=== PATIENT | female | born 1995 | race Hispanic/Latino ===

== ENCOUNTER 2017-07-25 14:20 | Emergency (ER) | payer SELFPAY ==
[2017-07-25 15:34] LABS: #Basophils 0.1 thou/uL (0.0-0.2); #Eosinphils 0.1 thou/uL (0.0-0.7); #Lymphocytes 2.2 thou/uL (1.20-3.40); #Monocytes 0.6 thou/uL (0.11-0.59); #Neutrophils 4.6 thou/uL (1.40-6.50); %Eosinophils 1.9 % (0.0-10.0); %Lymphocytes 29.1 % (21.0-51.0); %Monocytes 7.2 % (0.0-10.0); %Neutrophils 60.8 % (42.0-75.0); Hemoglobin 13.7 g/dL (12.0-16.0); Mean Corpuscular HGB CONC 32.3 g/dL (32.0-36.0); Mean Corpuscular Hemoglobin 29.1 pg (27.0-31.0); Mean Corpuscular Volume 90.3 fl (81.0-99.0); Mean Platelet Volume 6.5 fL (7.4-10.4); Platelet Count 316 thou/uL (130-400); RBC Distribution Width 12.9 % (11.5-14.5); Red Blood Cell (RBC) Count 4.71 mill/uL (4.20-5.40); White Blood Cell (WBC) Count 7.6 thou/uL (4.8-10.8)
[2017-07-25 15:53] LABS: ALT (SGPT) 25 U/L (8-55); AST (SGOT) 17 U/L (5-34); Albumin 4.3 g/dL (3.5-5.0); Alkaline Phosphatase 105 U/L (40-150); Anion Gap 13 mmol/L (10-20); BUN (Urea Nitrogen) 12 mg/dL (7.0-18.7); Bilirubin, Total 0.5 mg/dL (0.2-1.2); Calc. Creatinine Clearance 0 mL/min (70-130); Calcium 9.8 mg/dL (7.8-10.44); Carbon Dioxide 23 mmol/L (22-29); Chloride 104 mmol/L (98-107); Estimated GFR-MDRD Greater than 90; Globulin 3.4 g/dL (2.4-3.5); Glucose 93 mg/dL (70-105); Potassium 4.3 mmol/L (3.5-5.1); Protein, Total 7.7 g/dL (6.0-8.3); Sodium 136 mmol/L (136-145)
== END 2017-07-25 17:23 | disposition home or self-care (01) ==
LOC: ERS 14:20
DX: N93.9 Abnormal uterine and vaginal bleeding, unspecified (principal); F90.9 Attention-deficit hyperactivity disorder, unspecified type; F31.9 Bipolar disorder, unspecified; F17.290 Nicotine dependence, other tobacco product, uncomplicated
CPT/HCPCS: 36415; 80053; 84702; 85025; 99284

== ENCOUNTER 2017-09-02 20:42 | Emergency (ER) | payer SELFPAY ==
--- NOTE | 2017-09-02 21:40 | RAD ---
PA AND LATERAL CHEST RADIOGRAPH: Date: 09-02-17 History: Cough, congestion for one week. Comparison: 04-06-16 FINDINGS: Cardiac silhouette and pulmonary vasculature are within normal limits. The lungs remain clear. There has been no interval change from prior study. IMPRESSION: No acute cardiopulmonary process. POS: [facility]
== END 2017-09-02 22:34 | disposition home or self-care (01) ==
LOC: ERS 20:42
DX: B34.9 Viral infection, unspecified (principal); F31.9 Bipolar disorder, unspecified; F90.9 Attention-deficit hyperactivity disorder, unspecified type; F17.290 Nicotine dependence, other tobacco product, uncomplicated
CPT/HCPCS: 71046

== ENCOUNTER 2017-11-04 22:49 | Emergency (ER) | payer SELFPAY | END 2017-11-04 23:20 | disposition left against medical advice (07) | LOC: ERS 22:49 | DX: Z53.21 Procedure and treatment not carried out due to patient leaving prior to being seen by health care provider (principal) ==

== ENCOUNTER 2018-03-20 18:51 | Day surgery (SDC) | payer OTHER ==
[2018-03-20 19:23] VITALS: BP 103/53; TEMP 98.4; BMI 31.4
--- NOTE | 2018-03-20 19:38 | PDOC.LDHP ---
Labor and Delivery H&P Chief complaint: other (s/p fall at approx 1830 in kitchen. Patient of Dr aquino at [facility]) HPI: 22 yo at 23 weeks and 3 days s/p fall from standing (s/p slipping on floor) , approx 30 minutes ago. No LOF, No VB, feels baby movement. Sees Dr aquino. Review of Systems: HX anxiety and depression; past frug use (states none now), HX migraines, HX "seizures". Current gestational age (weeks): 23 (3 days) Due date: 07/14/18 Dating criteria: last menstrual period Grav: 3 Para: 2 Current complications: other (HX Migraines, depression) Current medications: pre- vitamins Previous surgical history: other (Tonsils) Allergies/Adverse Reactions: Allergies Allergy/AdvReac Type Severity Reaction Status Date / Time quetiapine fumarate AdvReac Mild Verified 02/08/16 21:50 [From Seroquel] Social history: other (past "histoty" denies current) - Physical Exam Vital signs reviewed and normal: yes (105/53, pulse76, RR 16) General: NAD Heart: RRR Lungs: CTAB Abdomen: other (soft, nt, no palp contractions) Extremeties: no edema FHT: category 1 (reactive for dates, no decels) [place] contractions every: none - Assessment s/p fall at 23 weeks and 3 days, past HX drug use, and past smoker. - Plan Plan: observation in L&D (Perr ACOG, we will obs for max of 4 hours. Check RH type. UTox for past HX drug use. Follow clinically. No VB currently. Patient seen by me at bedside.)
[2018-03-20 20:30] LABS: Amphetamine Not Detected (NotDetected); Barbiturates Screen Not Detected (NotDetected); Benzodiazepine Screen Not Detected (NotDetected); Cocaine Metabolite Screen Not Detected (NotDetected); Medtox Control Line Valid? VALID (VALID); Medtox Reader # READER 1; Methadone Not Detected (NotDetected); Methamphetamine Not Detected (NotDetected); Opiate Screen Not Detected (NotDetected); Oxycodone Screen Not Detected (NotDetected); Phencyclidine (PCP) Not Detected (NotDetected); THC/Cannabinoid Screen Detected (NotDetected); Tricyclic Screen Not Detected (NotDetected)
--- NOTE | 2018-03-20 20:42 | PDOC.EVN ---
Event Note - Event Note Event Note: Lab Check: UTox pos for cannabinoids. Noted.
--- NOTE | 2018-03-20 20:53 | PDOC.EVN ---
Event Note - Event Note Event Note: Blood type is RH pos
--- NOTE | 2018-03-20 21:38 | PDOC.EVN ---
Event Note - Event Note Event Note: Strip checked. Clinical no evidence PTL, or abruption
== END 2018-03-20 22:10 | disposition home or self-care (01) ==
LOC: L&D/OP 18:51
PROVIDERS: ATTEND Obstetrics & Gynecology
DX: O9A.212 Injury, poisoning and certain other consequences of external causes complicating pregnancy, second trimester (principal); Z3A.23 23 weeks gestation of pregnancy; Z87.891 Personal history of nicotine dependence; Z88.8 Allergy status to other drugs, medicaments and biological substances
CPT/HCPCS: 36415; 80306; 86900; 86901; 99282

== ENCOUNTER 2018-05-13 18:34 | Day surgery (SDC) | payer OTHER ==
[2018-05-13 19:18] VITALS: BP 115/65; TEMP 98.5; BMI 29.2
[2018-05-13 19:49] LABS: Bilirubin Small (Negative); Blood, Urine Negative (Negative); Clarity CLOUDY (Clear); Glucose, Urine (Dipstick) Negative (Negative); Leukocyte Small (Negative); Nitrite Negative (Negative); Protein, Urine (Dipstick) Trace mg/dL (Neg-Trace); Specific Gravity, Urine 1.029 (1.002-1.036)
[2018-05-13 19:52] LABS: Bacteria/HPF Rare-Few HPF (None Seen); Hyaline Casts/LPF 4-6 HYALINE CAST LPF (0-3 Hyaline); RBC/HPF 0-3 HPF (0-3); WBC/HPF 21-50 HPF (0-3)
[2018-05-13 20:02] LABS: Crystals/HPF RARE CA OXALATE HPF (Negative)
--- NOTE | 2018-05-14 02:32 | SS ---
LABOR AND DELIVERY TRIAGE NOTE DATE OF EVALUATION: 05/13/2018 REGULAR PHYSICIAN: Terry Gonzales MD at [facility]. EVALUATING PHYSICIAN: Anthony Downey MD CHIEF COMPLAINT: Lower abdominal discomfort at home. HISTORY OF PRESENT ILLNESS: Ms. Mcgrath is a 22-year-old white with an estimated date of confinement of 07/18/2018, who presents with complaining of lower abdominal discomfort over the last 12-24 hours. She denies pain with urination, blood in her urine, ruptured membranes, or vaginal bleeding. Her care has been with Dr. Gonzales at [facility]. She reports no significant complications. PAST OBSTETRICAL HISTORY: Two uncomplicated vaginal deliveries. PAST MEDICAL HISTORY: None. PAST SURGICAL HISTORY: Tonsillectomy. CURRENT MEDICATIONS: vitamins. ALLERGIES: No known allergies. SOCIAL HISTORY: Denies tobacco, alcohol, or drug use. FAMILY HISTORY: Unremarkable. REVIEW OF SYSTEMS: Denies nausea, vomiting, fever, or chills. She denies flank pain. PHYSICAL EXAMINATION: Vital signs are stable. She is afebrile. Her abdomen is soft, nontender, and gravid. Pelvic exam shows the cervix to be fingertip, 50% and posterior. heart tones are stable. No significant uterine contractions are seen. Urinalysis returns showing a specific gravity of 1.029 with trace protein, negative glucose, trace ketones, negative blood, negative nitrites with small leukocyte esterase. On microscopic, she has 0-3 rbc's, 21-50 wbc's, and 4-6 squamous cells. There are bacteria seen. ASSESSMENT: 1. A 30 and 4/7 week intrauterine . 2. Suspect urinary tract infection. PLAN: The patient will be sent home on Keflex 500 mg 1 p.o. 4 times a day for a week. She was given complete labor precautions and told to follow up with Dr. Gonzales at [facility]. She voiced understanding of her discharge instructions and was sent home in good condition. [facility]
== END 2018-05-13 21:35 | disposition home or self-care (01) ==
LOC: L&D/OP 18:34
PROVIDERS: ATTEND Obstetrics & Gynecology
DX: O99.89 Other specified diseases and conditions complicating pregnancy, childbirth and the puerperium (principal); R10.30 Lower abdominal pain, unspecified; Z3A.30 30 weeks gestation of pregnancy
CPT/HCPCS: 81001; 99283

== ENCOUNTER 2018-08-09 12:27 | Emergency (ER) | payer OTHER ==
[2018-08-09 13:08] LABS: #Lymphocytes 0.4 thou/uL (1.20-3.40); #Monocytes 0.5 thou/uL (0.11-0.59); #Neutrophils 5.7 thou/uL (1.40-6.50); %Basophils 0.5 % (0.0-1.0); %Eosinophils 0.6 % (0.0-10.0); %Lymphocytes 5.8 % (21.0-51.0); %Neutrophils 86.1 % (42.0-75.0); Hemoglobin 11.9 g/dL (12.0-16.0); Mean Corpuscular HGB CONC 31.2 g/dL (32.0-36.0); Mean Corpuscular Hemoglobin 24.2 pg (27.0-31.0); Mean Corpuscular Volume 77.5 fL (78.0-98.0); Mean Platelet Volume 7.4 fL (7.4-10.4); Platelet Count 246 thou/uL (130-400); Red Blood Cell (RBC) Count 4.93 mill/uL (4.20-5.40); White Blood Cell (WBC) Count 6.6 thou/uL (4.8-10.8)
[2018-08-09] MEDS ORDERED: Ondansetron PF 4 MG/2 ML Vial ONE (13:12)
[2018-08-09] MEDS ORDERED: Ketorolac Tromethamine 30 MG/ML VIAL ONE (13:12)
[2018-08-09 13:30] LABS: ALT (SGPT) 26 U/L (8-55); AST (SGOT) 23 U/L (5-34); Albumin 4.3 g/dL (3.5-5.0); Alkaline Phosphatase 96 U/L (40-150); Anion Gap 15 mmol/L (10-20); BUN (Urea Nitrogen) 10 mg/dL (7.0-18.7); Bilirubin, Total 0.7 mg/dL (0.2-1.2); Calc. Creatinine Clearance 0 mL/min (70-130); Calcium 9.5 mg/dL (7.8-10.44); Carbon Dioxide 21 mmol/L (22-29); Chloride 104 mmol/L (98-107); Estimated GFR-MDRD 79; Globulin 3.4 g/dL (2.4-3.5); Glucose 104 mg/dL (70-105); Potassium 3.9 mmol/L (3.5-5.1); Protein, Total 7.7 g/dL (6.0-8.3); Sodium 136 mmol/L (136-145)
== END 2018-08-09 15:44 | disposition home or self-care (01) ==
LOC: ERS 12:27
DX: J10.1 Influenza due to other identified influenza virus with other respiratory manifestations (principal)
CPT/HCPCS: 80053; 85025; 87804; 93005; 96361; 96374; 96375; J1885; J2405

== ENCOUNTER 2018-10-03 18:27 | Emergency (ER) | payer OTHER ==
[2018-10-03 19:03] LABS: #Basophils 0.1 thou/uL (0.0-0.2); #Lymphocytes 1.2 thou/uL (1.20-3.40); #Monocytes 0.4 thou/uL (0.11-0.59); #Neutrophils 5.3 thou/uL (1.40-6.50); %Basophils 0.8 % (0.0-1.0); %Eosinophils 0.3 % (0.0-10.0); %Lymphocytes 17.1 % (21.0-51.0); %Monocytes 5.7 % (0.0-10.0); Hemoglobin 12.3 g/dL (12.0-16.0); Mean Corpuscular HGB CONC 32.8 g/dL (32.0-36.0); Mean Corpuscular Volume 85.4 fL (78.0-98.0); Mean Platelet Volume 7.5 fL (7.4-10.4); Platelet Count 301 thou/uL (130-400); RBC Distribution Width 16.1 % (11.5-14.5); Red Blood Cell (RBC) Count 4.38 mill/uL (4.20-5.40)
[2018-10-03 19:23] LABS: ALT (SGPT) 28 U/L (8-55); AST (SGOT) 19 U/L (5-34); Acetaminophen Less than 6.0 mcg/mL (10.0-30.0); Albumin 4.4 g/dL (3.5-5.0); Alcohol 144 mg/dL (Less than 10); Alkaline Phosphatase 85 U/L (40-150); Anion Gap 13 mmol/L (10-20); BHCG - Serum Negative (NEGATIVE); BUN (Urea Nitrogen) 8 mg/dL (7.0-18.7); Bilirubin, Total 0.5 mg/dL (0.2-1.2); Calc. Creatinine Clearance 0 mL/min (70-130); Calcium 9.7 mg/dL (7.8-10.44); Carbon Dioxide 24 mmol/L (22-29); Chloride 110 mmol/L (98-107); Estimated GFR-MDRD 86; Globulin 2.9 g/dL (2.4-3.5); Glucose 92 mg/dL (70-105); Potassium 3.6 mmol/L (3.5-5.1); Pregs Control Background? CLEAR/WHITE (CLR/WHITE); Pregs Control Bar Appear? YES (CONTROL BAR); Protein, Total 7.3 g/dL (6.0-8.3); Salicylate Less than 8.0 mg/dL (15.0-30.0); Sodium 143 mmol/L (136-145)
[2018-10-03 19:58] LABS: Amphetamine Not Detected (NotDetected); Barbiturates Screen Not Detected (NotDetected); Benzodiazepine Screen Not Detected (NotDetected); Cocaine Metabolite Screen Not Detected (NotDetected); Medtox Control Line Valid? VALID (VALID); Medtox Reader # READER 1; Methadone Not Detected (NotDetected); Methamphetamine Not Detected (NotDetected); Opiate Screen Not Detected (NotDetected); Oxycodone Screen Not Detected (NotDetected); Phencyclidine (PCP) Not Detected (NotDetected); THC/Cannabinoid Screen Not Detected (NotDetected); Tricyclic Screen Not Detected (NotDetected)
[2018-10-03] MEDS ORDERED: Ondansetron ODT 4 MG TAB ONE (20:52)
[2018-10-03] MEDS ORDERED: Ondansetron PF 4 MG/2 ML Vial ONE (20:53)
--- NOTE | 2018-10-03 20:59 | CT ---
CT BRAIN 10/03/18 HISTORY: Trauma. Noncontrast enhanced CT images of the brain obtained on 10/03/18. Comparison made to previous exam from 03/01/15. Noncontrast enhanced CT images of the brain demonstrate the brain to be unremarkable. No evidence of intracranial masses, hemorrhages, strokes or contusions seen. Ventricles are of normal size. IMPRESSION: Normal CT brain. POS: [facility]
== END 2018-10-04 01:21 | disposition home or self-care (01) ==
LOC: ERS 18:27
DX: F43.20 Adjustment disorder, unspecified (principal); F10.129 Alcohol abuse with intoxication, unspecified
CPT/HCPCS: 36415; 70450; 80053; 80306; 80307; 84703; 85025; 96361; 96374; J2405; Q0162

== ENCOUNTER 2018-12-15 16:41 | Emergency (ER) | payer OTHER ==
--- NOTE | 2018-12-15 18:44 | RAD ---
3 views left foot history: Pain. AP, lateral and oblique views left foot obtained. 3 views left foot illustrate no evidence of left foot fractures, subluxations or bony lesions. IMPRESSION: Normal 3 views left foot.
[2018-12-15] MEDS ORDERED: Ibuprofen 200 MG TAB ONE (18:58)
== END 2018-12-15 19:05 | disposition home or self-care (01) ==
LOC: ERS 16:41
DX: M65.4 Radial styloid tenosynovitis [de Quervain] (principal)

== ENCOUNTER 2018-12-21 21:16 | Emergency (ER) | payer OTHER ==
[2018-12-21 21:51] LABS: #Lymphocytes 1.3 thou/uL (1.20-3.40); #Monocytes 0.4 thou/uL (0.11-0.59); #Neutrophils 6.2 thou/uL (1.40-6.50); %Basophils 0.5 % (0.0-1.0); %Eosinophils 0.6 % (0.0-10.0); %Lymphocytes 16.1 % (21.0-51.0); %Monocytes 5.5 % (0.0-10.0); %Neutrophils 77.3 % (42.0-75.0); Hemoglobin 10.9 g/dL (12.0-16.0); Mean Corpuscular Hemoglobin 28.3 pg (27.0-31.0); Mean Corpuscular Volume 85.8 fL (78.0-98.0); Mean Platelet Volume 6.9 fL (7.4-10.4); Platelet Count 236 thou/uL (130-400); RBC Distribution Width 13.4 % (11.5-14.5); Red Blood Cell (RBC) Count 3.86 mill/uL (4.20-5.40)
[2018-12-21 22:11] LABS: ALT (SGPT) 14 U/L (8-55); AST (SGOT) 14 U/L (5-34); Alkaline Phosphatase 77 U/L (40-150); Anion Gap 12 mmol/L (10-20); BUN (Urea Nitrogen) 9 mg/dL (7.0-18.7); Bilirubin, Total 0.6 mg/dL (0.2-1.2); Calc. Creatinine Clearance 0 mL/min (70-130); Calcium 8.8 mg/dL (7.8-10.44); Carbon Dioxide 24 mmol/L (22-29); Chloride 107 mmol/L (98-107); Estimated GFR-MDRD 88; Globulin 2.4 g/dL (2.4-3.5); Glucose 132 mg/dL (70-105); Potassium 3.7 mmol/L (3.5-5.1); Protein, Total 6.4 g/dL (6.0-8.3); Sodium 139 mmol/L (136-145)
[2018-12-21 22:12] LABS: Acetaminophen Less than 6.0 mcg/mL (10.0-30.0); Alcohol Less than 10 mg/dL (Less than 10); Salicylate Less than 8.0 mg/dL (15.0-30.0)
[2018-12-22 00:21] LABS: BHCG - Serum Negative (NEGATIVE); Pregs Control Background? CLEAR/WHITE (CLR/WHITE); Pregs Control Bar Appear? YES (CONTROL BAR)
[2018-12-22 02:31] LABS: Amphetamine Not Detected (NotDetected); Barbiturates Screen Not Detected (NotDetected); Benzodiazepine Screen Not Detected (NotDetected); Cocaine Metabolite Screen Not Detected (NotDetected); Medtox Control Line Valid? VALID (VALID); Medtox Reader # READER 1; Methadone Not Detected (NotDetected); Methamphetamine Not Detected (NotDetected); Opiate Screen Not Detected (NotDetected); Oxycodone Screen Not Detected (NotDetected); Phencyclidine (PCP) Not Detected (NotDetected); Pregnancy Test - Urine (BHCG) Negative (Negative); Pregu Control Background? CLEAR/WHITE (CLR/WHITE); Pregu Control Bar Appear? YES (CONTROL BAR); Specific Gravity 1.009 (1.002-1.036); THC/Cannabinoid Screen Not Detected (NotDetected); Tricyclic Screen Not Detected (NotDetected)
== END 2018-12-22 13:52 ==
LOC: ERS 21:16
DX: T43.212A Poisoning by selective serotonin and norepinephrine reuptake inhibitors, intentional self-harm, initial encounter (principal); F31.9 Bipolar disorder, unspecified; F17.210 Nicotine dependence, cigarettes, uncomplicated; Z79.899 Other long term (current) drug therapy
CPT/HCPCS: 36415; 80053; 80306; 80307; 81025; 84443; 84703; 85025; 93005; 96360; 96361

== ENCOUNTER 2019-03-10 19:55 | Emergency (ER) | payer OTHER | END 2019-03-10 20:35 | disposition home or self-care (01) | LOC: ERS 19:55 | DX: Z48.817 Encounter for surgical aftercare following surgery on the skin and subcutaneous tissue (principal); Z48.02 Encounter for removal of sutures; F31.9 Bipolar disorder, unspecified; Z79.899 Other long term (current) drug therapy ==

== ENCOUNTER 2019-09-29 21:38 | Emergency (ER) | payer OTHER ==
--- NOTE | 2019-09-29 23:01 | ULT ---
US Pelvic W Doppler HISTORY: Pelvic cramping vaginal spotting x2 days. Findings: Real-time imaging of the pelvis was obtained transabdominally. This shows an intrauterine g estational sac and pole as well as yolk sac. heart rate was 170 bpm. [place]-rump length measurements of 2.7 cm corresponding to 9 weeks 4 days. Gestational sac measurements are 4.3 cm corre sponding to 9 weeks 6 days. A very small subchorionic bleed is seen. The right ovary is well visualized and normal in appearance and the left ovary is also unremarkable. Doppler evaluation with spectral analysis: Normal flow shown to both ovaries. IMPRESSION: Single viable intrauterine with measurements corresponding to a gestational age of 9 weeks 5 days estimated date of delivery of 04/28/2020. A small subchorionic bleed is identified.
[2019-09-29 23:09] LABS: #Eosinphils 0.1 thou/uL (0.0-0.7); #Monocytes 0.5 thou/uL (0.11-0.59); #Neutrophils 4.3 thou/uL (1.40-6.50); %Basophils 0.5 % (0.0-1.0); %Lymphocytes 28.9 % (21.0-51.0); %Monocytes 6.7 % (0.0-10.0); %Neutrophils 62.9 % (42.0-75.0); Hemoglobin 12.7 g/dL (12.0-16.0); Mean Corpuscular HGB CONC 34.6 g/dL (32.0-36.0); Mean Corpuscular Hemoglobin 29.4 pg (27.0-31.0); Mean Corpuscular Volume 84.9 fL (78.0-98.0); Mean Platelet Volume 7.1 fL (7.4-10.4); Platelet Count 280 thou/uL (130-400); RBC Distribution Width 13.9 % (11.5-14.5); Red Blood Cell (RBC) Count 4.32 mill/uL (4.20-5.40); White Blood Cell (WBC) Count 6.9 thou/uL (4.8-10.8)
[2019-09-29 23:34] LABS: ALT (SGPT) 39 U/L (8-55); AST (SGOT) 18 U/L (5-34); Albumin 4.3 g/dL (3.5-5.0); Alkaline Phosphatase 80 U/L (40-110); Anion Gap 12 mmol/L (10-20); BUN (Urea Nitrogen) 6 mg/dL (7.0-18.7); Bilirubin, Total 0.4 mg/dL (0.2-1.2); Calc. Creatinine Clearance 0 mL/min (70-130); Calcium 9.6 mg/dL (7.8-10.44); Carbon Dioxide 24 mmol/L (22-29); Chloride 103 mmol/L (98-107); Estimated GFR-MDRD Greater than 90; Glucose 89 mg/dL (70-105); Potassium 3.8 mmol/L (3.5-5.1); Protein, Total 7.3 g/dL (6.0-8.3); Sodium 135 mmol/L (136-145)
[2019-09-29 23:59] LABS: BHCG - Serum POSITIVE (NEGATIVE); Pregs Control Background? CLEAR/WHITE (CLR/WHITE); Pregs Control Bar Appear? YES (CONTROL BAR)
== END 2019-09-29 23:26 | disposition left against medical advice (07) ==
LOC: ERS 21:38
DX: Z53.21 Procedure and treatment not carried out due to patient leaving prior to being seen by health care provider (principal)
CPT/HCPCS: 36415; 76856; 80053; 84702; 84703; 85025; 86900; 86901; 93976

== ENCOUNTER 2019-12-04 15:08 | Emergency (ER) | payer OTHER ==
[2019-12-04 16:25] LABS: Bilirubin Negative (Negative); Blood, Urine Negative (Negative); Calcium Oxalate Crystals Rare HPF (None Seen); Clarity Turbid (Clear); Glucose, Urine (Dipstick) Normal (Negative); Leukocyte 500 Leu/uL (Negative); Mucous/LPF 1+ LPF (<2+); Nitrite Negative (Negative); Protein, Urine (Dipstick) 30 mg/dL (Neg-Trace); RBC/HPF 0-3 HPF (0-3)
[2019-12-04 16:32] LABS: Bacteria/HPF 2+ HPF (None Seen)
[2019-12-04 16:38] LABS: #Basophils 0.1 thou/uL (0.0-0.2); #Eosinphils 0.1 thou/uL (0.0-0.7); #Lymphocytes 1.6 thou/uL (1.20-3.40); #Monocytes 0.5 thou/uL (0.11-0.59); #Neutrophils 5.3 thou/uL (1.40-6.50); %Basophils 0.8 % (0.0-1.0); %Eosinophils 1.4 % (0.0-10.0); %Lymphocytes 21.4 % (21.0-51.0); %Monocytes 6.2 % (0.0-10.0); %Neutrophils 70.3 % (42.0-75.0); Hemoglobin 11.3 g/dL (12.0-16.0); Mean Corpuscular Hemoglobin 29.7 pg (27.0-31.0); Mean Corpuscular Volume 87.3 fL (78.0-98.0); Mean Platelet Volume 6.9 fL (7.4-10.4); Platelet Count 266 thou/uL (130-400); RBC Distribution Width 13.6 % (11.5-14.5); Red Blood Cell (RBC) Count 3.82 mill/uL (4.20-5.40); White Blood Cell (WBC) Count 7.6 thou/uL (4.8-10.8)
--- NOTE | 2019-12-04 16:40 | ULT ---
ULTRASOUND OBSTETRICAL COMPLETE: DATE: 12/04/2019 HISTORY: 24-year-old female pelvic pain FINDINGS: number: molina lie: Footling breech Maternal cervix: 3.5 cm. Closed. Placenta: Anterior. No placenta previa or abruptio placentae. Amniotic fluid volume: SANDRA = 13cm heart rate: 157 bpm anatomy not evaluated in detail biometry: Biparietal diameter (BPD): 4.4 cm 19 w 2 d Head circumference (HC): 16.5 cm 19 w 1 d Abdominal circumference (AC): 14.7 cm 20 w 0 d Femur length (FL): 3.1 cm 19 w 3 d Average ultrasound age (AUA): 19 w 2 d Estimated date of delivery (JOHN PAUL): 05/07/2020 Estimated weight (EFW): 305 g +/- 45 g IMPRESSION: 1) Live 2nd trimester intrauterine gestation. 2) Estimated gestational age of 19 weeks, 2 days 3) footling breech lie. 4) no acute abnormality identified.
[2019-12-04 17:00] LABS: ALT (SGPT) 8 U/L (8-55); AST (SGOT) 10 U/L (5-34); Albumin 3.5 g/dL (3.5-5.0); Alkaline Phosphatase 74 U/L (40-110); Anion Gap 12 mmol/L (10-20); BUN (Urea Nitrogen) 7 mg/dL (7.0-18.7); Bilirubin, Total 0.5 mg/dL (0.2-1.2); Calc. Creatinine Clearance 0 mL/min (70-130); Carbon Dioxide 22 mmol/L (22-29); Chloride 105 mmol/L (98-107); Estimated GFR-MDRD Greater than 90; Globulin 3.1 g/dL (2.4-3.5); Glucose 86 mg/dL (70-105); Protein, Total 6.6 g/dL (6.0-8.3); Sodium 135 mmol/L (136-145)
== END 2019-12-04 17:38 | disposition home or self-care (01) ==
LOC: ERS 15:08
DX: O26.892 Other specified pregnancy related conditions, second trimester (principal); R10.9 Unspecified abdominal pain; F31.9 Bipolar disorder, unspecified; Z79.899 Other long term (current) drug therapy; Z3A.19 19 weeks gestation of pregnancy
CPT/HCPCS: 36415; 76816; 80053; 81003; 81015; 85025

== ENCOUNTER 2020-01-03 10:21 | Emergency (ER) | payer OTHER ==
--- NOTE | 2020-01-03 11:11 | RAD ---
Exam:3 views left ankle HISTORY: Pain. Injury. Fall. COMPARISON: None FINDINGS: Lateral soft tissue swelling. No fracture, cortical irregularity or periosteal reaction. IMPRESSION: Soft tissue swelling without evidence of fracture.
[2020-01-03] MEDS ORDERED: Acetaminophen 325 MG TAB ONE (11:58)
== END 2020-01-03 14:29 | disposition home or self-care (01) ==
LOC: ERS 10:21
DX: O9A.212 Injury, poisoning and certain other consequences of external causes complicating pregnancy, second trimester (principal); S93.401A Sprain of unspecified ligament of right ankle, initial encounter; O99.342 Other mental disorders complicating pregnancy, second trimester; F31.9 Bipolar disorder, unspecified; X50.1XXA Overexertion from prolonged static or awkward postures, initial encounter; Z3A.23 23 weeks gestation of pregnancy

== ENCOUNTER 2020-04-20 21:15 | Emergency (ER) | payer OTHER ==
--- NOTE | 2020-04-20 23:05 | RAD ---
XR Pelvis AP STANDARD HISTORY: Left hip pain FINDINGS: No fracture or dislocation is identified.
--- NOTE | 2020-04-20 23:06 | RAD ---
XR Hip Lt 2-3 View HISTORY: Left hip pain FINDINGS: No fracture or dislocation is identified.
[2020-04-20] MEDS ORDERED: HYDROcodone/Acetaminophen 10/325 mg Tablet ONE (23:11)
== END 2020-04-20 23:32 | disposition home or self-care (01) ==
LOC: ERS 21:15
DX: O9A.23 Injury, poisoning and certain other consequences of external causes complicating the puerperium (principal); S76.012A Strain of muscle, fascia and tendon of left hip, initial encounter
CPT/HCPCS: 72170

== ENCOUNTER 2022-09-16 21:06 | Emergency (ER) | payer OTHER ==
[2022-09-16] MEDS ORDERED: Ondansetron PF 4 MG/2 ML Vial ONE (21:44)
[2022-09-16 21:51] LABS: #Basophils 0.1 thou/uL (0.0-0.2); #Monocytes 0.4 thou/uL (0.11-0.59); Hemoglobin 15.7 g/dL (12.0-16.0); Red Blood Cell (RBC) Count 4.93 mill/uL (4.20-5.40)
[2022-09-16 21:54] LABS: #Lymphocytes 1.6 thou/uL (1.20-3.40); #Neutrophils 6.9 thou/uL (1.40-6.50); %Basophils 0.8 % (0.0-1.0); %Eosinophils 0.5 % (0.0-10.0); %Lymphocytes 18.1 % (21.0-51.0); %Monocytes 4.4 % (0.0-10.0); %Neutrophils 76.2 % (42.0-75.0); Mean Corpuscular HGB CONC 34.2 g/dL (32.0-36.0); Mean Corpuscular Hemoglobin 31.7 pg (27.0-31.0); Mean Corpuscular Volume 92.9 fl (78.0-98.0); Mean Platelet Volume 7.2 fL (7.4-10.4); Platelet Count 301 10x3/uL (130-400); RBC Distribution Width 11.6 % (11.5-14.5)
[2022-09-16] MEDS ORDERED: Mag-Al 1200 mg/1200 mg/30 ML UDCUP ONE (21:54)
[2022-09-16] MEDS ORDERED: Lidocaine Viscous Sol 2% 15 ml UD Cup ONE (21:54)
[2022-09-16 21:59] LABS: BHCG - Serum Negative (NEGATIVE); Pregs Control Background? CLEAR/WHITE (CLR/WHITE); Pregs Control Bar Appear? YES (CONTROL BAR)
[2022-09-16 22:12] LABS: ALT (SGPT) 20 U/L (8-55); AST (SGOT) 20 U/L (5-34); Albumin 4.9 g/dL (3.5-5.0); Alkaline Phosphatase 74 U/L (40-110); Anion Gap 13 mmol/L (10-20); BUN (Urea Nitrogen) 9 mg/dL (7.0-18.7); Bilirubin, Total 0.5 mg/dL (0.2-1.2); Calc. Creatinine Clearance 0 mL/min (70-130); Calcium 10.4 mg/dL (7.8-10.44); Carbon Dioxide 26 mmol/L (22-29); Chloride 102 mmol/L (98-107); Estimated GFR 98; Globulin 3.2 g/dL (2.4-3.5); Glucose 104 mg/dL (70-105); Potassium 4.4 mmol/L (3.5-5.1); Protein, Total 8.1 g/dL (6.0-8.3); Sodium 137 mmol/L (136-145)
== END 2022-09-16 23:50 | disposition home or self-care (01) ==
LOC: ERS 21:06
DX: R11.2 Nausea with vomiting, unspecified (principal)
CPT/HCPCS: 71045; 80053; 83690; 84443; 84484; 84703; 85025; 93005; 96374; J2405

== ENCOUNTER 2025-05-19 08:37 | Emergency (ER) | payer OTHER ==
[2025-05-19] MEDS ORDERED: HYDROcodone/Acetaminophen 10/325 mg Tablet ONE (09:41)
== END 2025-05-19 10:48 | disposition home or self-care (01) ==
LOC: ERS 08:37
DX: S93.602A Unspecified sprain of left foot, initial encounter (principal); W20.8XXA Other cause of strike by thrown, projected or falling object, initial encounter
CPT/HCPCS: 99283